=== PATIENT | male | born 1955 | race Caucasian/White ===

== ENCOUNTER → 2016-12-22 | Outpatient (CLI) | payer BC ==
[2016-12-22 08:09] LABS: ABSOLUTE BASOPHILS # (AUTO) 0.1 10^3/uL (0.0-0.2); ABSOLUTE EOSINOPHILS # (AUTO) 0.3 10^3/uL (0.0-0.6); ABSOLUTE LYMPHOCYTES (AUTO) 1.5 10^3/uL (0.5-4.7); ABSOLUTE MONOCYTES (AUTO) 0.7 10^3/uL (0.1-1.4); ABSOLUTE NEUT (AUTO) 3.6 10^3/uL (1.7-8.2); EOSINOPHILS % (AUTO) 4.9 % (0-6); HEMATOCRIT 46.9 % (37.9-51.0); HEMOGLOBIN 15.4 g/dL (13.5-17.0); HGB HCT DIFFERENCE -0.7; LYMPHOCYTES % (AUTO) 24.6 % (13-45); MEAN CORPUSCULAR HEMOGLOBIN 26.1 pg (27.0-33.4); MEAN CORPUSCULAR HGB CONC 32.8 g/dL (32.0-36.0); MEAN CORPUSCULAR VOLUME 80 fl (80-97); RED CELL DISTRIBUTION WIDTH 15.7 % (11.5-14.0); SEGMENTED NEUTROPHILS % (AUTO) 58.5 % (42-78); WHITE BLOOD COUNT 6.2 10^3/uL (4.0-10.5)
[2016-12-22 08:43] LABS: ALBUMIN 4.1 g/dL (3.5-5.0); ALKALINE PHOSPHATASE 79 U/L (38-126); ANION GAP 17 (5-19); ASPARTATE AMINO TRANSFERASE 36 U/L (17-59); BLOOD UREA NITROGEN 18 mg/dL (7-20); CALCIUM 10.1 mg/dL (8.4-10.2); CARBON DIOXIDE 25 mmol/L (22-30); CHLORIDE 100 mmol/L (98-107); CREATININE RESULT 0.91 mg/dL (0.52-1.25); GLUCOSE 120 mg/dL (75-110); POTASSIUM 4.8 mmol/L (3.6-5.0); SODIUM 141.8 mmol/L (137-145)
[2016-12-22 08:44] LABS: ALANINE AMINOTRANSFERASE 50 U/L (21-72); BILIRUBIN,TOTAL 0.6 mg/dL (0.2-1.3); CHOLESTEROL 213.48 mg/dL (0-200); Direct HDL 25 mg/dL (>40); TOTAL PROTEIN 6.6 g/dL (6.3-8.2)
[2016-12-22 08:59] LABS: DIRECT LDL 100 mg/dL (<100)
[2016-12-22 09:32] LABS: TRIGLYCERIDES 614 mg/dL (<150)
== END ==
LOC: OD 07:11
PROVIDERS: ATTEND Internal Medicine
DX: Z00.00 Encounter for general adult medical examination without abnormal findings (principal); R97.20 Elevated prostate specific antigen [PSA]; Z12.12 Encounter for screening for malignant neoplasm of rectum; I10 Essential (primary) hypertension; E78.2 Mixed hyperlipidemia; E11.40 Type 2 diabetes mellitus with diabetic neuropathy, unspecified; E29.1 Testicular hypofunction
CPT/HCPCS: 36415; 80053; 80061; 82043; 82272; 83036; 84153; 84403; 85025

== ENCOUNTER → 2017-02-27 | Outpatient (CLI) | payer BC ==
[2017-02-27 08:28] LABS: CHOLESTEROL 175.17 mg/dL (0-200); Direct HDL 25 mg/dL (>40)
[2017-02-27 08:39] LABS: DIRECT LDL 84 mg/dL (<100)
[2017-02-27 08:41] LABS: TRIGLYCERIDES 554 mg/dL (<150)
== END ==
LOC: OD 07:36
PROVIDERS: ATTEND Internal Medicine
DX: E78.2 Mixed hyperlipidemia (principal); E29.1 Testicular hypofunction
CPT/HCPCS: 36415; 80061; 84403

== ENCOUNTER 2017-04-17 11:55 | Emergency (ER) | payer BC ==
[2017-04-17] MEDS ORDERED: HYDROCODONE/ACETAMINOPHEN 5-325 MG TABLET PO ONE (13:30)
--- NOTE | 2017-04-17 13:32 | ER Document Report ---
HPI - HPI Patient complains to provider of: right ankle injury Onset: Yesterday Onset/Duration: Sudden Quality of pain: Throbbing Severity: Moderate Pain Level: 3 Context: Patient states he slipped on uneven ground and felt a pop to his right lateral ankle. Complains of continued pain and swelling. Associated Symptoms: Leg swelling - Ankle Exacerbated by: Movement, Walking Relieved by: Denies Similar symptoms previously: Yes Recently seen / treated by doctor: No - ROS ROS below otherwise negative: Yes Systems Reviewed and Negative: Yes All other systems reviewed and negative - CONSTITUTIONAL Constitutional: DENIES: Fever - EENT EENT: DENIES: Congestion - NEURO Neurology: DENIES: Headache - CARDIOVASCULAR Cardiovascular: DENIES: Chest pain - RESPIRATORY Respiratory: DENIES: Trouble Breathing - GASTROINTESTINAL Gastrointestinal: DENIES: Abdominal Pain - URINARY Urinary: DENIES: Dysuria - MUSCULOSKELETAL Musculoskeletal: REPORTS: Extremity pain, Swelling - Ankle - DERM Skin Color: Normal Skin Problems: None Past Medical History - General Information source: Patient - Social History Smoking Status: Former Smoker Frequency of alcohol use: None Drug Abuse: None Lives with: Spouse/Significant other Family History: Reviewed & Not Pertinent Patient has suicidal ideation: No Patient has homicidal ideation: No - Past Medical History Cardiac Medical History: Reports: Hx Hypertension Musculoskeltal Medical History: Reports Hx Musculoskeletal Trauma Past Surgical History: Reports: Hx Orthopedic Surgery, Hx Tonsillectomy Vertical Provider Document - CONSTITUTIONAL Agree With Documented VS: Yes Exam Limitations: No Limitations General Appearance: WD/WN, No Apparent Distress - INFECTION CONTROL TRAVEL OUTSIDE OF THE [place] IN LAST 30 DAYS: No - HEENT HEENT: Atraumatic, Normocephalic - RESPIRATORY Respiratory: Breath Sounds Normal, No Respiratory Distress O2 Sat by Pulse Oximetry: 98 - CARDIOVASCULAR Cardiovascular: Regular Rate, Regular Rhythm - MUSCULOSKELETAL/EXTREMETIES Musculoskeletal/Extremeties: Tender, Edema - Right lateral ankle. negative: Eccymosis - NEURO Level of Consciousness: Awake, Alert, Appropriate Notes: Neurovascular intact. Decreased sensation, which patient states is normal for him because he has neuropathy. Is able to feel me touching all areas of foot. - DERM Integumentary: Warm, Dry Course - Re-evaluation Re-evalutation: 04/17/17 14:50 X-ray showed no evidence of acute fracture and this was discussed with the patient. - Vital Signs Vital signs: Temp Pulse Resp BP Pulse Ox 98.3 F 80 20 125/72 98 04/17/17 12:09 04/17/17 12:09 04/17/17 12:09 04/17/17 12:09 04/17/17 12:09 Procedures - Immobilization Right Ankle Pre-Proc Neuro Vasc Exam: Normal Immobilizer type: Ankle stirrup Performed by: PCT Post-Proc Neuro Vasc Exam: Normal Alignment checked and good: Yes Discharge - Discharge Clinical Impression: Right ankle sprain Qualifiers: Encounter type: initial encounter Involved ligament of ankle: other ligament Qualified Code(s): S93.491A - Sprain of other ligament of right ankle, initial encounter Condition: Good Disposition: HOME, SELF-CARE Instructions: Sprained Ankle ([facility]), Oral Narcotic Medication ([facility]), Ice Packs ( [facility]), Splint Precautions ([facility]) Additional Instructions: Ice and elevate ankle Use crutches as much as possible to allow the ankle to rest OTC ibuprofen for pain and swelling, Percocet as needed Follow-up with your doctor or orthopedic if not better in 1 week return As needed Prescriptions: Oxycodone HCl/Acetaminophen [Percocet 5-325 mg Tablet] 1 - 2 tab PO ASDIR PRN # 15 tablet PRN Reason: Referrals: CHRISTIAN MENA MD [Primary Care Provider] - Follow up as needed
--- NOTE | 2017-04-17 14:21 | RADIOLOGY REPORT (SQ) ---
EXAM DESCRIPTION: ANKLE RIGHT COMPLETE COMPLETED DATE/TIME: 04/17/2017 1:53 pm REASON FOR STUDY: injury COMPARISON: None. NUMBER OF VIEWS: Three views. TECHNIQUE: AP, lateral, and oblique radiographic images acquired of the right ankle. LIMITATIONS: None. FINDINGS: MINERALIZATION: Normal. BONES: No acute fracture or dislocation. No worrisome bone lesions. Metallic anchors in the calcane us posteriorly. Moderate-size discontinuous calcaneal spur at the insertion of the Achilles. Small calcaneal spur at the insertion of the plantar aponeurosis with calcification the plantar aponeurosis . Small spur off the medial malleolus. JOINTS: No effusions. Mild degenerative changes involving the midfoot. SOFT TISSUES: Mild soft tissue swelling in the region of the distal Achilles. OTHER: No other significant finding. IMPRESSION: No evidence of acute fracture with other findings as above. TECHNICAL DOCUMENTATION: JOB ID: [id number] [employer]- All Rights Reserved
[2017-04-17 15:20] VITALS: BP 120/66
== END 2017-04-17 15:19 | disposition home or self-care (01) ==
LOC: ER 11:55
DX: S93.401A Sprain of unspecified ligament of right ankle, initial encounter (principal); W01.0XXA Fall on same level from slipping, tripping and stumbling without subsequent striking against object, initial encounter; I10 Essential (primary) hypertension; G62.9 Polyneuropathy, unspecified
CPT/HCPCS: 99283; 73610; L1902

== ENCOUNTER → 2017-05-09 | Outpatient (CLI) | payer BC ==
[2017-05-09 08:58] LABS: ALANINE AMINOTRANSFERASE 34 U/L (21-72); ALBUMIN 4.2 g/dL (3.5-5.0); ALKALINE PHOSPHATASE 76 U/L (38-126); ANION GAP 11 (5-19); ASPARTATE AMINO TRANSFERASE 36 U/L (17-59); BILIRUBIN,DIRECT 0.4 mg/dL (0.0-0.4); BILIRUBIN,TOTAL 0.5 mg/dL (0.2-1.3); BLOOD UREA NITROGEN 14 mg/dL (7-20); CALCIUM 9.5 mg/dL (8.4-10.2); CARBON DIOXIDE 26 mmol/L (22-30); CHLORIDE 104 mmol/L (98-107); CHOLESTEROL 164.63 mg/dL (0-200); CREATININE RESULT 0.92 mg/dL (0.52-1.25); Direct HDL 25 mg/dL (>40); GLUCOSE 164 mg/dL (75-110); POTASSIUM 4.4 mmol/L (3.6-5.0); SODIUM 140.5 mmol/L (137-145); TRIGLYCERIDES 483 mg/dL (<150)
[2017-05-09 09:14] LABS: DIRECT LDL 89 mg/dL (<100)
== END ==
LOC: OD 07:49
PROVIDERS: ATTEND Internal Medicine
DX: I10 Essential (primary) hypertension (principal); E78.2 Mixed hyperlipidemia; E11.40 Type 2 diabetes mellitus with diabetic neuropathy, unspecified
CPT/HCPCS: 36415; 80053; 80061; 83036; 84403

== ENCOUNTER → 2017-05-28 | Outpatient (CLI) | payer BC ==
--- NOTE | 2017-05-28 15:36 | RADIOLOGY REPORT (SQ) ---
EXAM DESCRIPTION: CT BONE LENGTH COMPLETED DATE/TIME: 05/28/2017 3:25 pm REASON FOR STUDY: LLD COMPARISON: None. TECHNIQUE: CT scanogram of the bilateral lower extremities is performed including pelvis to ankles. Measurements of femur, tibia, and entire lower extremities performed by the radiologist and saved to PACS. All CT scanners at this facility use dose modulation, iterative reconstruction, and/or weight based d osing when appropriate to reduce radiation dose to as low as reasonably achievable (ALARA). [facility]: Dose Right [facility]: CareDose [facility]: Dose Right [facility]: Teradose 4D [facility]: Smart Showbie RADIATION DOSE: mGy. LIMITATIONS: None. FINDINGS: RIGHT: FEMUR: 47.4 cm. TIBIA: 39.5 cm. TOTAL RIGHT LOWER EXTREMITY LENGTH: 86.9 cm. LEFT: FEMUR: 48.2 cm. TIBIA: 39.3 cm. TOTAL LEFT LOWER EXTREMITY LENGTH: 87.5 cm. IMPRESSION: LEG LENGTH MEASUREMENTS DETAILED ABOVE. TECHNICAL DOCUMENTATION: JOB ID: [id number] Quality ID # [id number]: Final reports with documentation of one or more dose reduction techniques (e.g., Au tomated exposure control, adjustment of the mA and/or kV according to patient size, use of iterative reconstruction technique) 2010 [employer]- All Rights Reserved
== END ==
LOC: RAD 15:05
PROVIDERS: ATTEND Preventive Medicine Undersea and Hyperbaric Medicine
DX: Q72.819 Congenital shortening of unspecified lower limb (principal)
CPT/HCPCS: 77073

== ENCOUNTER 2017-10-09 16:22 | Day surgery (SDC) | payer BC ==
[~2017-10-09 16:22] MED LIST: EPINEPHRINE INJ 1 MG/10 ML DISP.SYRIN ONE; FENTANYL CITRATE INJ/PF 100 MCG/2 ML AMPUL ONE; FLUMAZENIL INJ 0.5 MG/5 ML VIAL ONE; GLUCAGON,HUMAN RECOMB 1 MG INJ ONE; NALOXONE HCL INJ/PF 0.4 MG/1 ML SDV ONE
[2017-10-09] MEDS: MIDAZOLAM 2 MG/2 ML INJ ONE ×2 (17:29→17:33)
--- NOTE | 2017-10-09 18:05 | Operative Report ---
Operative Report DATE OF SURGERY: 10/09/17 Operative Report: Pre-op diagnosis: Colon cancer screening Post-op diagnosis: 1. Sigmoid colon polyp 2. Sigmoid diverticulosis Surgery: Colonoscopy with polypectomy Medications: 4Versed mg, Fentanyl 100mcg IV push Tissue removed: Colon polyp Procedure: After informed consent obtained from patient, conscious sedation was achieved. A digital rectal examination was performed and this was unremarkable. The colonoscope was inserted into the rectum and advanced to the cecum. The appendiceal orifice and the terminal ileum were both identified. The mucosa was examined into details as the colonoscope was slowly pulled out of the patient. The endoscope was retroflexed in the rectum. Patient tolerated the procedure well. Findings Terminal ileum: Cecum: Normal Ascending colon: Normal Transverse colon: Normal Descending colon: Normal Sigmoid colon: 8 mm polyp removed with a hot snare. Multiple diverticuli were also noted Rectum: Normal except for internal hemorrhoids Plan: Await pathology and repeat colonoscopy in 5 years OPERATION: .
[2017-10-09 18:41] VITALS: BP 126/74
== END 2017-10-09 18:45 | disposition home or self-care (01) ==
LOC: END 16:22
PROVIDERS: ATTEND Internal Medicine Gastroenterology
PROC: 0DBN8ZX Excision of Sigmoid Colon, Via Natural or Artificial Opening Endoscopic, Diagnostic (ICD-10-PCS; principal; 2017-10-09 16:30)
DX: Z12.11 Encounter for screening for malignant neoplasm of colon (principal); D12.5 Benign neoplasm of sigmoid colon; K57.30 Diverticulosis of large intestine without perforation or abscess without bleeding; K64.8 Other hemorrhoids; I10 Essential (primary) hypertension; E11.9 Type 2 diabetes mellitus without complications; E78.00 Pure hypercholesterolemia, unspecified; G47.30 Sleep apnea, unspecified; Z79.84 Long term (current) use of oral hypoglycemic drugs; Z79.899 Other long term (current) drug therapy
CPT/HCPCS: 45385; 82962; 88305 ×2; J2250; J3010; J0171; J1610; J2310; J3490

== ENCOUNTER → 2017-12-27 | Outpatient (CLI) | payer BC, OTHER ==
[2017-12-27 07:58] LABS: ABSOLUTE BASOPHILS # (AUTO) 0.1 10^3/uL (0.0-0.2); ABSOLUTE EOSINOPHILS # (AUTO) 0.3 10^3/uL (0.0-0.6); ABSOLUTE LYMPHOCYTES (AUTO) 1.5 10^3/uL (0.5-4.7); ABSOLUTE MONOCYTES (AUTO) 0.6 10^3/uL (0.1-1.4); ABSOLUTE NEUT (AUTO) 3.5 10^3/uL (1.7-8.2); BASOPHILS % (AUTO) 0.9 % (0-2); EOSINOPHILS % (AUTO) 4.9 % (0-6); HEMATOCRIT 49.1 % (37.9-51.0); HEMOGLOBIN 16.3 g/dL (13.5-17.0); LYMPHOCYTES % (AUTO) 25.4 % (13-45); MEAN CORPUSCULAR HEMOGLOBIN 26.7 pg (27.0-33.4); MEAN CORPUSCULAR HGB CONC 33.2 g/dL (32.0-36.0); MEAN CORPUSCULAR VOLUME 80 fl (80-97); MONOCYTES % (AUTO) 9.6 % (3-13); PLATELET COUNT 175 10^3/uL (150-450); RED CELL DISTRIBUTION WIDTH 15.8 % (11.5-14.0); SEGMENTED NEUTROPHILS % (AUTO) 59.2 % (42-78); TOTAL CELLS COUNTED % (AUTO) 100 %; WHITE BLOOD COUNT 5.9 10^3/uL (4.0-10.5)
[2017-12-27 08:41] LABS: ALANINE AMINOTRANSFERASE 37 U/L (21-72); ALBUMIN 4.3 g/dL (3.5-5.0); ALKALINE PHOSPHATASE 68 U/L (38-126); ANION GAP 13 (5-19); ASPARTATE AMINO TRANSFERASE 38 U/L (17-59); BILIRUBIN,DIRECT 0.4 mg/dL (0.0-0.4); BILIRUBIN,TOTAL 0.7 mg/dL (0.2-1.3); BLOOD UREA NITROGEN 13 mg/dL (7-20); CALCIUM 9.6 mg/dL (8.4-10.2); CARBON DIOXIDE 26 mmol/L (22-30); CHLORIDE 104 mmol/L (98-107); CHOLESTEROL 170.94 mg/dL (0-200); GLUCOSE 125 mg/dL (75-110); POTASSIUM 4.4 mmol/L (3.6-5.0); SODIUM 142.6 mmol/L (137-145); TOTAL PROTEIN 7.1 g/dL (6.3-8.2); TRIGLYCERIDES 368 mg/dL (<150)
[2017-12-27 08:55] LABS: DIRECT LDL 104 mg/dL (<100)
[2017-12-27 08:57] LABS: VLDL CHOLESTEROL 73.6 mg/dL (10-31)
== END ==
LOC: OD 07:14
PROVIDERS: ATTEND Internal Medicine
DX: E11.40 Type 2 diabetes mellitus with diabetic neuropathy, unspecified (principal); E78.2 Mixed hyperlipidemia; R97.20 Elevated prostate specific antigen [PSA]; Z09 Encounter for follow-up examination after completed treatment for conditions other than malignant neoplasm
CPT/HCPCS: 36415; 80053; 80061; 82043; 83036; 84153; 84403; 85025

== ENCOUNTER → 2018-05-09 | Outpatient (CLI) | payer BC ==
--- NOTE | 2018-05-09 17:25 | XCELERA REPORT ---
[address] [address] Transthoracic Echocardiogram Report Name: LEONORA ROSALES Age: 62 yrs Gender: Male : 1955 Patient Status: Outpatient Patient Location: Study Date: 05/09/2018 02:21 PM Height: 71 in Weight: 260 lb BSA: 2.4 m2 Procedure: A two-dimensional transthoracic echocardiogram with color flow Doppler was performed. The study was technically limited with all images being suboptimal in quality. Reason For Study: CP History: Chest pain. Ordering Physician: RENETTA PENALOZA Performed By: Jaylen Hawkins Interpretation Summary The left ventricle is normal in size. There is normal left ventricular wall thickness. LV EF is 60% Left ventricular systolic function is normal. Doppler measurements suggest impaired left ventricular relaxation, which is associated with grade I/IV or mild diastolic dysfunction The left ventricular wall motion is normal. The right ventricle is grossly normal size. The left atrial size is normal. There is no evidence of mitral valve prolapse. There is no mitral valve stenosis. There is a trace amount of mitral regurgitation There is no aortic valve stenosis There is no LVOT obstruction. No aortic regurgitation is present. There is no tricuspid stenosis. There is a trace to mild amount of tricuspid regurgitation There is mild pulmonary hypertension by echo RVSP is 39 mm of Hg , with RA mean of 10. There is no pericardial effusion. MMode/2D Measurements & Calculations RVDd: 4.4 cm LVIDd: 4.2 cm FS: 33.4 % Ao root diam: 2.8 cm IVSd: 1.0 cm LVIDs: 2.8 cm EDV(Teich): 80.2 ml LVPWd: 1.2 cm ESV(Teich): 30.1 ml Ao root area: 6.0 cm2 EF(Teich): 62.5 % LA dimension: 3.8 cm LVOT diam: 2.1 cm LVOT area: 3.5 cm2 Doppler Measurements & Calculations MV E max fadumo: MV P1/2t max fadumo: Ao V2 max: LV V1 max P.9 cm/sec 83.0 cm/sec 136.3 cm/sec 8.0 mmHg MV A max fadumo: MV P1/2t: 74.4 msec Ao max PG: LV V1 max: 80.0 cm/sec MVA(P1/2t): 3.0 cm2 7.4 mmHg 141.2 cm/sec MV E/A: 1.1 MV dec slope: SAMUEL(V,D): 3.7 cm2 326.6 cm/sec2 MV dec time: 0.19 sec TV V2 max: PA V2 max: 267.4 cm/sec 67.1 cm/sec TV max PG: PA max P.8 mmHg 28.6 mmHg Left Ventricle The left ventricle is normal in size. There is normal left ventricular wall thickness. LV EF is 60%. Left ventricular systolic function is normal. Doppler measurements suggest impaired left ventricular relaxation, which is associated with grade I/IV or mild diastolic dysfunction. The left ventricular wall motion is normal. There is no thrombus. Right Ventricle The right ventricle is grossly normal size. Atria The right atrium is normal. The left atrial size is normal. Mitral Valve There is no evidence of mitral valve prolapse. There is no vegetation seen on the mitral valve. There is no mitral valve stenosis. There is a trace amount of mitral regurgitation. Aortic Valve There is no aortic valvular vegetation. There is no aortic valve stenosis. There is no LVOT obstruction. No aortic regurgitation is present. Tricuspid Valve There is no tricuspid stenosis. There is a trace to mild amount of tricuspid regurgitation. There is mild pulmonary hypertension by echo. RVSP is 39 mm of Hg , with RA mean of 10. Pulmonic Valve There is no pulmonic valvular stenosis. There is no pulmonic valvular regurgitation. Great Vessels The aortic root is not well visualized. Effusions There is no pericardial effusion. : RENETTA PENALOZA > Renetta Penaloza
== END ==
LOC: SP 13:48
PROVIDERS: ATTEND Specialist
DX: R07.9 Chest pain, unspecified (principal)
CPT/HCPCS: 93306

== ENCOUNTER → 2018-05-13 | Outpatient (CLI) | payer BC | LOC: SP 09:41 | PROVIDERS: ATTEND Specialist | DX: R07.9 Chest pain, unspecified (principal) | CPT/HCPCS: 93017 ==

== ENCOUNTER → 2018-06-01 | Outpatient (CLI) | payer BC ==
[2018-06-01 09:42] LABS: ABSOLUTE BASOPHILS # (AUTO) 0.1 10^3/uL (0.0-0.2); ABSOLUTE EOSINOPHILS # (AUTO) 0.4 10^3/uL (0.0-0.6); ABSOLUTE LYMPHOCYTES (AUTO) 1.5 10^3/uL (0.5-4.7); ABSOLUTE MONOCYTES (AUTO) 0.6 10^3/uL (0.1-1.4); EOSINOPHILS % (AUTO) 5.5 % (0-6); HEMATOCRIT 51.4 % (37.9-51.0); LYMPHOCYTES % (AUTO) 23.2 % (13-45); MEAN CORPUSCULAR HEMOGLOBIN 26.2 pg (27.0-33.4); MEAN CORPUSCULAR VOLUME 79 fl (80-97); MONOCYTES % (AUTO) 9.3 % (3-13); PLATELET COUNT 201 10^3/uL (150-450); RED BLOOD COUNT 6.48 10^6/uL (4.35-5.55); RED CELL DISTRIBUTION WIDTH 15.5 % (11.5-14.0); TOTAL CELLS COUNTED % (AUTO) 100 %; WHITE BLOOD COUNT 6.6 10^3/uL (4.0-10.5)
[2018-06-01 10:00] LABS: ALANINE AMINOTRANSFERASE 51 U/L (21-72); ALBUMIN 4.6 g/dL (3.5-5.0); ALKALINE PHOSPHATASE 77 U/L (38-126); ANION GAP 13 (5-19); ASPARTATE AMINO TRANSFERASE 49 U/L (17-59); BILIRUBIN,DIRECT 0.3 mg/dL (0.0-0.4); BILIRUBIN,TOTAL 0.6 mg/dL (0.2-1.3); BLOOD UREA NITROGEN 13 mg/dL (7-20); CARBON DIOXIDE 29 mmol/L (22-30); CHLORIDE 101 mmol/L (98-107); CHOLESTEROL 186.58 mg/dL (0-200); GLUCOSE 131 mg/dL (75-110); POTASSIUM 4.7 mmol/L (3.6-5.0); SODIUM 143.4 mmol/L (137-145); TOTAL PROTEIN 7.7 g/dL (6.3-8.2); TRIGLYCERIDES 382 mg/dL (<150)
[2018-06-01 10:11] LABS: DIRECT LDL 100 mg/dL (<100)
[2018-06-01 11:36] LABS: VLDL CHOLESTEROL 76.4 mg/dL (10-31)
== END ==
LOC: OD 08:21
PROVIDERS: ATTEND Internal Medicine
DX: E53.8 Deficiency of other specified B group vitamins (principal); D50.8 Other iron deficiency anemias; E11.40 Type 2 diabetes mellitus with diabetic neuropathy, unspecified; E29.1 Testicular hypofunction; E78.2 Mixed hyperlipidemia
CPT/HCPCS: 36415; 80053; 80061; 82607; 82728; 82746; 83036; 84403; 85025

== ENCOUNTER → 2018-11-13 | Outpatient (CLI) | payer BC ==
[2018-11-13 10:35] LABS: ALANINE AMINOTRANSFERASE 41 U/L (21-72); ALBUMIN 4.6 g/dL (3.5-5.0); ALKALINE PHOSPHATASE 75 U/L (38-126); ANION GAP 12 (5-19); ASPARTATE AMINO TRANSFERASE 37 U/L (17-59); BILIRUBIN,DIRECT 0.1 mg/dL (0.0-0.4); BILIRUBIN,TOTAL 0.5 mg/dL (0.2-1.3); BLOOD UREA NITROGEN 12 mg/dL (7-20); CARBON DIOXIDE 28 mmol/L (22-30); CHLORIDE 102 mmol/L (98-107); CHOLESTEROL 185.05 mg/dL (0-200); GLUCOSE 129 mg/dL (75-110); POTASSIUM 4.2 mmol/L (3.6-5.0); SODIUM 142.2 mmol/L (137-145); TOTAL PROTEIN 7.2 g/dL (6.3-8.2); TRIGLYCERIDES 349 mg/dL (<150)
[2018-11-13 10:45] LABS: DIRECT LDL 109 mg/dL (<100)
[2018-11-13 10:47] LABS: VLDL CHOLESTEROL 69.8 mg/dL (10-31)
[2018-11-14 13:39] LABS: CREATININE URINE 144.3 mg/dL (Not Estab.)
== END ==
LOC: OD 09:03
PROVIDERS: ATTEND Internal Medicine
DX: I10 Essential (primary) hypertension (principal); E78.2 Mixed hyperlipidemia; E29.1 Testicular hypofunction; E11.40 Type 2 diabetes mellitus with diabetic neuropathy, unspecified
CPT/HCPCS: 36415; 80053; 80061; 82043; 82570; 84403

== ENCOUNTER → 2019-02-13 | Outpatient (CLI) | payer BC ==
[2019-02-13 11:38] LABS: ALANINE AMINOTRANSFERASE 36 U/L (21-72); ALBUMIN 4.3 g/dL (3.5-5.0); ALKALINE PHOSPHATASE 82 U/L (38-126); ANION GAP 10 (5-19); ASPARTATE AMINO TRANSFERASE 30 U/L (17-59); BILIRUBIN,DIRECT 0.3 mg/dL (0.0-0.4); BILIRUBIN,TOTAL 0.5 mg/dL (0.2-1.3); BLOOD UREA NITROGEN 15 mg/dL (7-20); CALCIUM 10.4 mg/dL (8.4-10.2); CARBON DIOXIDE 27 mmol/L (22-30); CHLORIDE 103 mmol/L (98-107); CHOLESTEROL 199.61 mg/dL (0-200); GLUCOSE 150 mg/dL (75-110); TOTAL PROTEIN 7.2 g/dL (6.3-8.2); TRIGLYCERIDES 517 mg/dL (<150)
[2019-02-13 11:49] LABS: DIRECT LDL 104 mg/dL (<100)
== END ==
LOC: OD 10:17
PROVIDERS: ATTEND Internal Medicine
DX: E11.40 Type 2 diabetes mellitus with diabetic neuropathy, unspecified (principal); E78.2 Mixed hyperlipidemia; E29.1 Testicular hypofunction
CPT/HCPCS: 36415; 80053; 80061; 83036; 84403

== ENCOUNTER → 2019-03-05 | Outpatient (CLI) | payer BC ==
--- NOTE | 2019-03-05 15:15 | RADIOLOGY REPORT (SQ) ---
EXAM DESCRIPTION: MRI HEAD COMBO COMPLETED DATE/TIME: 03/05/2019 1:17 pm REASON FOR STUDY: VERTIGO OF CENTRAL ORIGIN, BILATERAL (H81.43) H81.43 VERTIGO OF CENTRAL ORIGIN, B ILATERAL COMPARISON: MRI brain 02/20/2012 TECHNIQUE: Multiplanar imaging includes noncontrasted T1, T2, FLAIR, diffusion with ADC map and post gadolinium contrast T1 sequences. Images stored on PACS. CONTRAST TYPE AND DOSE: 20 mL Dotarem. RENAL FUNCTION: Not indicated. ACR Type II contrast agent associated with few, if any, unconfounded cases of NSF LIMITATIONS: None. FINDINGS: ANATOMY: No developmental anomalies. Normal vascular flow voids. Pituitary fossa normal. CSF SPACES: Normal in size and contour. No hemorrhage. CEREBRUM: Sulci and gyri normal in size and contour. Stable increased bifrontal and biparietal spott y increased white matter signal on FLAIR imaging from chronic small vessel ischemic change. Old infa rct left lateral basal ganglia. . No evidence of hemorrhage, mass, or extraaxial fluid collection. N o abnormal enhancement post contrast. POSTERIOR FOSSA: No signal alteration. No hemorrhage. No edema, masses, or mass effect. Internal ana lilia tory canals, cerebellopontine angles, mastoids normal. No enhancing lesions. No abnormal enhancement post contrast. DIFFUSION IMAGING: Negative for acute or subacute infarction. ORBITS: No masses. Globes normal. PARANASAL SINUSES: No fluid levels. Mucosa normal. OTHER: No other significant finding. IMPRESSION: Mild bifrontal and biparietal spotty white matter disease with old left basal ganglia la cunar infarcts. No acute findings. No masses or enhancement. No findings to explain history of dizziness EVIDENCE OF ACUTE STROKE: NO. TECHNICAL DOCUMENTATION: JOB ID: [id number] [employer]- All Rights Reserved Reading location - IP/workstation name: [email or web address]
== END ==
LOC: RAD 12:08
PROVIDERS: ATTEND Physician Assistant
DX: H81.43 Vertigo of central origin, bilateral (principal)
CPT/HCPCS: 70553; A9576

== ENCOUNTER → 2019-05-15 | Outpatient (CLI) | payer BC ==
[2019-05-15 11:16] LABS: ALANINE AMINOTRANSFERASE 30 U/L (21-72); ALBUMIN 4.5 g/dL (3.5-5.0); ALKALINE PHOSPHATASE 65 U/L (38-126); ANION GAP 11 (5-19); ASPARTATE AMINO TRANSFERASE 35 U/L (17-59); BILIRUBIN,DIRECT 0.3 mg/dL (0.0-0.4); BILIRUBIN,TOTAL 0.6 mg/dL (0.2-1.3); BLOOD UREA NITROGEN 14 mg/dL (7-20); CALCIUM 9.8 mg/dL (8.4-10.2); CARBON DIOXIDE 27 mmol/L (22-30); CHLORIDE 102 mmol/L (98-107); GLUCOSE 138 mg/dL (75-110); POTASSIUM 4.3 mmol/L (3.6-5.0); SODIUM 140.4 mmol/L (137-145); TOTAL PROTEIN 7.5 g/dL (6.3-8.2); TRIGLYCERIDES 377 mg/dL (<150)
[2019-05-15 11:29] LABS: DIRECT LDL 79 mg/dL (<100)
[2019-05-15 11:46] LABS: VLDL CHOLESTEROL 75.4 mg/dL (10-31)
[2019-05-16 12:36] LABS: CREATININE URINE 182.9 mg/dL (Not Estab.); MICROALBUMIN URINE 185.8 ug/mL (Not Estab.)
== END ==
LOC: OD 09:41
PROVIDERS: ATTEND Internal Medicine
DX: E78.2 Mixed hyperlipidemia (principal); R97.20 Elevated prostate specific antigen [PSA]; E11.40 Type 2 diabetes mellitus with diabetic neuropathy, unspecified
CPT/HCPCS: 36415; 80053; 80061; 82043; 82570; 83036; 84153; 84403

== ENCOUNTER → 2019-08-19 | Outpatient (CLI) | payer BC ==
[2019-08-19 10:16] LABS: ABSOLUTE BASOPHILS # (AUTO) 0.1 10^3/uL (0.0-0.2); ABSOLUTE EOSINOPHILS # (AUTO) 0.2 10^3/uL (0.0-0.6); ABSOLUTE LYMPHOCYTES (AUTO) 1.3 10^3/uL (0.5-4.7); ABSOLUTE MONOCYTES (AUTO) 0.6 10^3/uL (0.1-1.4); ABSOLUTE NEUT (AUTO) 2.5 10^3/uL (1.7-8.2); BASOPHILS % (AUTO) 1.5 % (0-2); EOSINOPHILS % (AUTO) 5.2 % (0-6); HEMATOCRIT 48.5 % (37.9-51.0); HEMOGLOBIN 15.9 g/dL (13.5-17.0); LYMPHOCYTES % (AUTO) 28.4 % (13-45); MEAN CORPUSCULAR HEMOGLOBIN 25.6 pg (27.0-33.4); MEAN CORPUSCULAR HGB CONC 32.9 g/dL (32.0-36.0); MEAN CORPUSCULAR VOLUME 78 fl (80-97); MONOCYTES % (AUTO) 11.7 % (3-13); PLATELET COUNT 153 10^3/uL (150-450); RED BLOOD COUNT 6.22 10^6/uL (4.35-5.55); RED CELL DISTRIBUTION WIDTH 15.4 % (11.5-14.0); SEGMENTED NEUTROPHILS % (AUTO) 53.2 % (42-78); TOTAL CELLS COUNTED % (AUTO) 100 %; WHITE BLOOD COUNT 4.7 10^3/uL (4.0-10.5)
[2019-08-19 10:37] LABS: ALBUMIN 4.3 g/dL (3.5-5.0); ALKALINE PHOSPHATASE 62 U/L (38-126); ANION GAP 12 (5-19); ASPARTATE AMINO TRANSFERASE 31 U/L (17-59); BILIRUBIN,DIRECT 0.2 mg/dL (0.0-0.4); BILIRUBIN,TOTAL 0.5 mg/dL (0.2-1.3); BLOOD UREA NITROGEN 9 mg/dL (7-20); CALCIUM 9.6 mg/dL (8.4-10.2); CARBON DIOXIDE 27 mmol/L (22-30); CHLORIDE 100 mmol/L (98-107); CHOLESTEROL 154.68 mg/dL (0-200); GLUCOSE 129 mg/dL (75-110); POTASSIUM 4.3 mmol/L (3.6-5.0); TOTAL PROTEIN 7.4 g/dL (6.3-8.2); TRIGLYCERIDES 271 mg/dL (<150)
[2019-08-19 10:47] LABS: DIRECT LDL 95 mg/dL (<100)
[2019-08-19 10:51] LABS: VLDL CHOLESTEROL 54.2 mg/dL (10-31)
[2019-08-20 12:37] LABS: CREATININE URINE 150.7 mg/dL (Not Estab.); MICROALBUMIN URINE 127.7 ug/mL (Not Estab.)
== END ==
LOC: OD 09:40
PROVIDERS: ATTEND Physician Assistant
DX: E78.2 Mixed hyperlipidemia (principal); E11.40 Type 2 diabetes mellitus with diabetic neuropathy, unspecified; I10 Essential (primary) hypertension
CPT/HCPCS: 36415; 80053; 80061; 82043; 82570; 83036; 85025

== ENCOUNTER → 2019-11-06 | Outpatient (CLI) | payer BC ==
[2019-11-06 08:32] LABS: ABSOLUTE BASOPHILS # (AUTO) 0.1 10^3/uL (0.0-0.2); ABSOLUTE EOSINOPHILS # (AUTO) 0.2 10^3/uL (0.0-0.6); ABSOLUTE LYMPHOCYTES (AUTO) 1.4 10^3/uL (0.5-4.7); ABSOLUTE MONOCYTES (AUTO) 0.6 10^3/uL (0.1-1.4); ABSOLUTE NEUT (AUTO) 3.2 10^3/uL (1.7-8.2); BASOPHILS % (AUTO) 1.3 % (0-2); EOSINOPHILS % (AUTO) 4.3 % (0-6); HEMATOCRIT 50.9 % (37.9-51.0); HEMOGLOBIN 16.9 g/dL (13.5-17.0); LYMPHOCYTES % (AUTO) 25.9 % (13-45); MEAN CORPUSCULAR HEMOGLOBIN 26.5 pg (27.0-33.4); MEAN CORPUSCULAR HGB CONC 33.2 g/dL (32.0-36.0); MEAN CORPUSCULAR VOLUME 80 fl (80-97); PLATELET COUNT 179 10^3/uL (150-450); RED CELL DISTRIBUTION WIDTH 16.4 % (11.5-14.0); SEGMENTED NEUTROPHILS % (AUTO) 58.5 % (42-78); TOTAL CELLS COUNTED % (AUTO) 100 %; WHITE BLOOD COUNT 5.5 10^3/uL (4.0-10.5)
[2019-11-06 09:00] LABS: ALBUMIN 4.5 g/dL (3.5-5.0); ALKALINE PHOSPHATASE 62 U/L (38-126); ANION GAP 12 (5-19); ASPARTATE AMINO TRANSFERASE 31 U/L (17-59); BILIRUBIN,DIRECT 0.3 mg/dL (0.0-0.4); BILIRUBIN,TOTAL 0.7 mg/dL (0.2-1.3); BLOOD UREA NITROGEN 17 mg/dL (7-20); CALCIUM 10.2 mg/dL (8.4-10.2); CARBON DIOXIDE 27 mmol/L (22-30); CHLORIDE 100 mmol/L (98-107); CHOLESTEROL 172.61 mg/dL (0-200); GLUCOSE 129 mg/dL (75-110); POTASSIUM 4.7 mmol/L (3.6-5.0); TOTAL PROTEIN 7.6 g/dL (6.3-8.2); TRIGLYCERIDES 328 mg/dL (<150)
[2019-11-06 09:11] LABS: DIRECT LDL 112 mg/dL (<100)
[2019-11-06 09:37] LABS: VLDL CHOLESTEROL 65.6 mg/dL (10-31)
[2019-11-07 11:37] LABS: CREATININE URINE 174.7 mg/dL (Not Estab.); MICROALBUMIN URINE 49.9 ug/mL (Not Estab.)
== END ==
LOC: OD 07:14
PROVIDERS: ATTEND Internal Medicine
DX: E78.2 Mixed hyperlipidemia (principal); I10 Essential (primary) hypertension; D50.8 Other iron deficiency anemias; E29.1 Testicular hypofunction; E11.69 Type 2 diabetes mellitus with other specified complication; E11.21 Type 2 diabetes mellitus with diabetic nephropathy
CPT/HCPCS: 36415; 80053; 80061; 82043; 82570; 82728; 83036; 84403; 85025

== ENCOUNTER → 2020-02-06 | Outpatient (CLI) | payer BC ==
[2020-02-06 08:19] LABS: ABSOLUTE BASOPHILS # (AUTO) 0.1 10^3/uL (0.0-0.2); ABSOLUTE EOSINOPHILS # (AUTO) 0.3 10^3/uL (0.0-0.6); ABSOLUTE LYMPHOCYTES (AUTO) 1.6 10^3/uL (0.5-4.7); ABSOLUTE MONOCYTES (AUTO) 0.7 10^3/uL (0.1-1.4); ABSOLUTE NEUT (AUTO) 3.7 10^3/uL (1.7-8.2); EOSINOPHILS % (AUTO) 4.7 % (0-6); HEMATOCRIT 49.8 % (37.9-51.0); HEMOGLOBIN 16.9 g/dL (13.5-17.0); LYMPHOCYTES % (AUTO) 24.9 % (13-45); MEAN CORPUSCULAR HEMOGLOBIN 27.8 pg (27.0-33.4); MEAN CORPUSCULAR HGB CONC 33.9 g/dL (32.0-36.0); MEAN CORPUSCULAR VOLUME 82 fl (80-97); MONOCYTES % (AUTO) 10.3 % (3-13); PLATELET COUNT 183 10^3/uL (150-450); RED BLOOD COUNT 6.08 10^6/uL (4.35-5.55); RED CELL DISTRIBUTION WIDTH 15.7 % (11.5-14.0); SEGMENTED NEUTROPHILS % (AUTO) 59.1 % (42-78); TOTAL CELLS COUNTED % (AUTO) 100 %; WHITE BLOOD COUNT 6.3 10^3/uL (4.0-10.5)
[2020-02-06 08:41] LABS: ALBUMIN 4.8 g/dL (3.5-5.0); ALKALINE PHOSPHATASE 59 U/L (38-126); ANION GAP 10 (5-19); ASPARTATE AMINO TRANSFERASE 30 U/L (17-59); BILIRUBIN,TOTAL 0.6 mg/dL (0.2-1.3); BLOOD UREA NITROGEN 19 mg/dL (7-20); CALCIUM 10.3 mg/dL (8.4-10.2); CARBON DIOXIDE 28 mmol/L (22-30); CHLORIDE 100 mmol/L (98-107); CHOLESTEROL 183.43 mg/dL (0-200); GLUCOSE 127 mg/dL (75-110); TOTAL PROTEIN 7.7 g/dL (6.3-8.2); TRIGLYCERIDES 254 mg/dL (<150)
[2020-02-06 08:52] LABS: DIRECT LDL 120 mg/dL (<100)
[2020-02-06 09:21] LABS: VLDL CHOLESTEROL 50.8 mg/dL (10-31)
== END ==
LOC: OD 07:04
PROVIDERS: ATTEND Internal Medicine
DX: E78.2 Mixed hyperlipidemia (principal); D50.8 Other iron deficiency anemias; E11.69 Type 2 diabetes mellitus with other specified complication
CPT/HCPCS: 36415; 80053; 80061; 82728; 83036; 85025

== ENCOUNTER → 2020-07-13 | Outpatient (CLI) | payer BC ==
[2020-07-13 12:43] LABS: ANION GAP 10 (5-19); BLOOD UREA NITROGEN 17 mg/dL (7-20); CALCIUM 10.5 mg/dL (8.4-10.2); CARBON DIOXIDE 26 mmol/L (22-30); CHLORIDE 105 mmol/L (98-107); GLUCOSE 137 mg/dL (75-110); POTASSIUM 4.4 mmol/L (3.6-5.0)
== END ==
LOC: OD 11:20
PROVIDERS: ATTEND Internal Medicine
DX: N17.8 Other acute kidney failure (principal)
CPT/HCPCS: 36415; 80048

== ENCOUNTER → 2020-09-07 | Outpatient (CLI) | payer MEDICARE ==
[2020-09-07 09:49] LABS: ALBUMIN 4.5 g/dL (3.5-5.0); ALKALINE PHOSPHATASE 55 U/L (38-126); ANION GAP 14 (5-19); ASPARTATE AMINO TRANSFERASE 27 U/L (17-59); BILIRUBIN,DIRECT 0.2 mg/dL (0.0-0.4); BILIRUBIN,TOTAL 0.6 mg/dL (0.2-1.3); BLOOD UREA NITROGEN 20 mg/dL (7-20); CALCIUM 9.8 mg/dL (8.4-10.2); CARBON DIOXIDE 25 mmol/L (22-30); CHLORIDE 101 mmol/L (98-107); CHOLESTEROL 182.61 mg/dL (0-200); GLUCOSE 107 mg/dL (75-110); POTASSIUM 4.2 mmol/L (3.6-5.0); TOTAL PROTEIN 7.3 g/dL (6.3-8.2); TRIGLYCERIDES 353 mg/dL (<150)
[2020-09-07 09:59] LABS: DIRECT LDL 112 mg/dL (<100)
[2020-09-07 10:06] LABS: VLDL CHOLESTEROL 70.6 mg/dL (10-31)
== END ==
LOC: OD 08:13
PROVIDERS: ATTEND Internal Medicine
DX: E11.69 Type 2 diabetes mellitus with other specified complication (principal); E78.2 Mixed hyperlipidemia
CPT/HCPCS: 36415; 80053; 80061; 83036; 84402

== ENCOUNTER 2020-11-15 08:30 | Emergency (ER) | payer MEDICARE ==
[2020-11-15] MEDS ORDERED: ASPIRIN 81 MG TABLET, CHEWABLE PO ONE (08:46)
[2020-11-15] MEDS ORDERED: NITROGLYCERIN/D5W 50 MG/250 ML RTUINJ IV PRN (08:47)
[2020-11-15] MEDS ORDERED: MORPHINE SULFATE 10 MG/ML INJ IV ONE (08:47)
[2020-11-15] MEDS ORDERED: ONDANSETRON HCL INJ/PF 4 MG/2 ML SDV IV ONE (08:47)
[2020-11-15] MEDS ORDERED: HEPARIN SOD (PORCINE) 1,000 UNIT/ML 10 ML VIAL IV ONE (08:53)
--- NOTE | 2020-11-15 09:03 | ER Document Report ---
ED Cardiac - General Stated Complaint: CHEST PAIN LEFT ARM PAIN Time Seen by Provider: 11/15/20 08:45 Primary Care Provider: CHRISTIAN MENA MD [Primary Care Provider] - Follow up as needed Mode of Arrival: Ambulatory Information source: Patient Notes: 65-year-old male arrives POV ambulatory after having pushed some riding lawnmower on Sunday; patient reports he had some substernal pain but today he began to have increased chest pain 5 out of 10 with referral down left arm and with some shortness of breath. Patient awoke at 0 530 with chest pain with some sweatiness and nausea without vomiting. He denies any nausea. He did take some aspirin this morning. He was given aspirin upon arrival as well as placed on nitro drip and also given morphine and heparin drip. Patient had EKG upon arrival which revealed ST elevation to the inferior leads as well as reciprocation to the anterior leads. After seeing the EKG he was placed in trauma room 1 and Dawna WEST began evaluation this patient. He was given aspirin p.o. as well as IVs. Chest x-ray was within normal limits. Patient reports he quit smoking 1/2 pack/day and the late . He used to drink bourbon on a daily basis but quit that in the as well. He denies any illegal drugs or Covid or influenza exposure. I called Ariela at the transfer center and she reached cardiology's Dr. Cano TRAVEL OUTSIDE OF THE [place] IN LAST 30 DAYS: No - HPI Patient complains to provider of: Chest pain, Chest tightness, Shortness of breath Use of: denies: Alcohol, Amphetamines, Bath salts, Caffeine, Cocaine, Decongestants Was the onset of pain: Sudden Chest pain location: Substernal. No: Back, Pleuritic Quality of pain: Constant, Achy, Cramping, Heaviness, Pressure, Radiating, Stabbing, Tightness. denies: Burning, Constriction, Crushing, Incisional, Ind igestion, Numbness, Throbbing Chest pain radiation location: Left arm. denies: Right jaw, Right arm Severity now: Severe Severity at worst: Moderate Pain level currently: 4 Cardiac risk factors: Hypertension Positive cardiac history: No Associated symptoms: Diaphoresis. denies: Abdominal pain, Cool extremities, Dizziness, Edema, Fatigue, Fever/chills, Headache, Heartburn, Jaw pain, Lightheaded, Neck pain, Palpitations, Rash, Shortness of breath, Swelling/lump in chest Exacerbated by: Activity Similar symptoms previously: Yes Recently seen / treated by doctor: No - Related Data Allergies/Adverse Reactions: seafood Allergy (Uncoded 10/09/17 16:27) Past Medical History - General Information source: Patient - Social History Smoking Status: Former Smoker Cigarette use (# per day): No - Patient quit smoking 1-1/2 packs/day in and began smoking when 16 yo Chew tobacco use (# tins/day): No Smoking Education Provided: No Frequency of alcohol use: None - Patient exbourbon drinker and quit in the Lives with: Family - Radha at home because she just is recovering from her aortic valve replacement 1 month ago and just fell and fractured her right sh oulder Family History: Reviewed & Not Pertinent Patient has suicidal ideation: No Patient has homicidal ideation: No - Past Medical History Cardiac Medical History: Reports: Hx Hypertension Denies: Hx Coronary Artery Disease, Hx Heart Attack Pulmonary Medical History: Denies: Hx Asthma, Hx Bronchitis, Hx COPD, Hx Pneumonia Neurological Medical History: Denies: Hx Cerebrovascular Accident, Hx Seizures Endocrine Medical History: Reports: Hx Diabetes Mellitus Type 2 Renal/ Medical History: Reports: Hx Kidney Stones. Denies: Hx Peritoneal Dialysis GI Medical History: Reports: Hx Hiatal Hernia Musculoskeletal Medical History: Denies Hx Arthritis, Reports Hx Musculoskeletal Trauma Past Surgical History: Reports: Hx Orthopedic Surgery, Hx Tonsillectomy - Immunizations Hx Diphtheria, Pertussis, Tetanus Vaccination: No Review of Systems - Review of Systems Constitutional: No symptoms reported EENT: No symptoms reported Cardiovascular: See HPI, Chest pain Respiratory: No symptoms reported Gastrointestinal: No symptoms reported Genitourinary: No symptoms reported Male Genitourinary: No symptoms reported Musculoskeletal: No symptoms reported Skin: No symptoms reported Hematologic/Lymphatic: No symptoms reported Neurological/Psychological: No symptoms reported Physical Exam - Vital signs Interpretation: Normal - General General appearance: Appears well, Alert - HEENT Head: Normocephalic, Atraumatic Eyes: Normal Pupils: PERRL - Respiratory Respiratory status: No respiratory distress Chest status: Nontender Breath sounds: Normal Chest palpation: Normal - Cardiovascular Rhythm: Regular Heart sounds: Normal auscultation Murmur: No Systolic murmur grade 1-6: 0 - With STEMI inferior leads but reciprocation to anterior leads. - Abdominal Inspection: Normal Distension: No distension Bowel sounds: Normal Tenderness: Nontender Organomegaly: No organomegaly - Back Back: Normal, Nontender - Extremities General upper extremity: Normal inspection, Nontender, Normal color, Normal ROM, Normal temperature General lower extremity: Normal inspection, Nontender, Normal color, Normal ROM, Normal temperature, Normal weight bearing. No: Moreno's sign - Neurological Neuro grossly intact: Yes Cognition: Normal Orientation: AAOx4 [place] Coma Scale Eye Opening: Spontaneous [place] Coma Scale Verbal: Oriented Adarsh Coma Scale Motor: Obeys Commands Adarsh Coma Scale Total: 15 Speech: Normal Motor strength normal: LUE, RUE, LLE, RLE Sensory: Normal - Psychological Associated symptoms: Normal affect, Normal mood - Skin Skin Temperature: Warm Skin Moisture: Dry Skin Color: Normal Course - Laboratory Results Result Diagrams: 11/15/20 09:00 11/15/20 09:00 Critical Laboratory Results Reviewed: Yes Attending or Supervising Physician who Reviewed Labs: DELIA WRIGHT JR - Radiology Results Critical Radiology Results Reviewed: Yes Attending or Supervising Physician who Reviewed Radiology: DELIA WRIGHT JR - EKG Interpretation by [place] EKG shows normal: Sinus rhythm Rate: Normal Rhythm: NSR, Other - With heart rate at 62 bpm sinus rhythm with acute STEMI inferior infarct and ST depression in anterior leads. Critical Care Note - Critical Care Note Comments: I spoke with Dr. Raymond mines safety engineer at approximately 0 [phone] and helicopter had been dispatched prior to this by rAiela at the transfer center. Demographics had been sent to [facility] as well as x-ray findings and EKG sent to Dr. Vaca telephone number. Identified and criteria was covered up by nursing staff prior to sending this. Patient was chopper out by [phone] Discharge - Discharge Clinical Impression: STEMI (ST elevation myocardial infarction) Qualifiers: Involved coronary artery: unspecified coronary artery Qualified Code(s): I21.3 - ST elevation (STEMI) myocardial infarction of unspecified site Condition: Stable Disposition: [facility] Additional Instructions: Transfer this patient to [facility] by helicopter Referrals: CHRISTIAN MENA MD [Primary Care Provider] - Follow up as needed
[2020-11-15] MEDS ORDERED: CLOPIDOGREL BISULFATE 300 MG TABLET PO ONE (09:13)
[2020-11-15 09:24] LABS: ABSOLUTE BASOPHILS # (AUTO) 0.1 10^3/uL (0.0-0.2); ABSOLUTE EOSINOPHILS # (AUTO) 0.3 10^3/uL (0.0-0.6); ABSOLUTE LYMPHOCYTES (AUTO) 1.4 10^3/uL (0.5-4.7); ABSOLUTE MONOCYTES (AUTO) 0.8 10^3/uL (0.1-1.4); ABSOLUTE NEUT (AUTO) 6.7 10^3/uL (1.7-8.2); BASOPHILS % (AUTO) 0.9 % (0-2); EOSINOPHILS % (AUTO) 2.9 % (0-6); HEMOGLOBIN 16.2 g/dL (13.5-17.0); LYMPHOCYTES % (AUTO) 15.3 % (13-45); MEAN CORPUSCULAR HEMOGLOBIN 28.5 pg (27.0-33.4); MEAN CORPUSCULAR HGB CONC 34.6 g/dL (32.0-36.0); MEAN CORPUSCULAR VOLUME 82 fl (80-97); MONOCYTES % (AUTO) 8.4 % (3-13); PLATELET COUNT 220 10^3/uL (150-450); RED CELL DISTRIBUTION WIDTH 15.3 % (11.5-14.0); SEGMENTED NEUTROPHILS % (AUTO) 72.5 % (42-78); TOTAL CELLS COUNTED % (AUTO) 100 %; WHITE BLOOD COUNT 9.3 10^3/uL (4.0-10.5)
--- NOTE | 2020-11-15 09:42 | RADIOLOGY REPORT (SQ) ---
EXAM DESCRIPTION: CHEST SINGLE VIEW IMAGES COMPLETED DATE/TIME: 11/15/2020 8:02 am REASON FOR STUDY: cp. COMPARISON: None. EXAM PARAMETERS: NUMBER OF VIEWS: One view. TECHNIQUE: Single frontal radiographic view of the chest acquired. RADIATION DOSE: NA LIMITATIONS: None. FINDINGS: LUNGS AND PLEURA: No opacities, masses or pneumothorax. No pleural effusion. MEDIASTINUM AND HILAR STRUCTURES: No masses. Contour normal. HEART AND VASCULAR STRUCTURES: Heart normal in size. Normal vasculature. BONES: No acute findings. HARDWARE: None in the chest. OTHER: No other significant finding. IMPRESSION: NO ACUTE RADIOGRAPHIC FINDING IN THE CHEST. TECHNICAL DOCUMENTATION: JOB ID: [id number] [employer]- All Rights Reserved Reading location - IP/workstation name: [id number]
[2020-11-15 09:48] LABS: ALBUMIN 4.9 g/dL (3.5-5.0); ALKALINE PHOSPHATASE 55 U/L (38-126); ANION GAP 12 (5-19); ASPARTATE AMINO TRANSFERASE 35 U/L (17-59); BILIRUBIN,DIRECT 0.3 mg/dL (0.0-0.4); BILIRUBIN,TOTAL 0.5 mg/dL (0.2-1.3); BLOOD UREA NITROGEN 17 mg/dL (7-20); CALCIUM 10.1 mg/dL (8.4-10.2); CARBON DIOXIDE 27 mmol/L (22-30); CHLORIDE 101 mmol/L (98-107); GLUCOSE 150 mg/dL (75-110); POTASSIUM 4.4 mmol/L (3.6-5.0); TOTAL PROTEIN 7.9 g/dL (6.3-8.2)
[2020-11-15 09:59] LABS: CREATINE KINASE MB 3.44 ng/mL (<4.55); TROPONIN I 0.033 ng/mL
[2020-11-15 10:00] VITALS: BP 144/81
--- NOTE | 2020-11-15 13:24 | EKG REPORT ---
SEVERITY:- ABNORMAL ECG - SINUS RHYTHM INFERIOR INFARCT, ACUTE : Confirmed by: Ahmet Knox MD 15-Nov-2020 13:24:16
[2020-11-15] MEDS ORDERED: CLOPIDOGREL BISULFATE 300 MG TABLET ONE (18:23)
[2020-11-15] MEDS ORDERED: ASPIRIN 81 MG TABLET, CHEWABLE ONE (18:23)
== END 2020-11-15 09:25 | disposition short-term general hospital (02) ==
LOC: ER 08:30
DX: I21.19 ST elevation (STEMI) myocardial infarction involving other coronary artery of inferior wall (principal); I10 Essential (primary) hypertension; E11.9 Type 2 diabetes mellitus without complications; Z87.891 Personal history of nicotine dependence; Z91.013 Allergy to seafood; Z20.822 Contact with and (suspected) exposure to COVID-19
CPT/HCPCS: 93005; 99285; 96374; 96375; 36415; 82553; 85025; 0241U; 80053; 84484; 85379; 71045; 93010; A9270 ×2; J1644; J2270; J2405; C9803; J3490